=== PATIENT | male | born 1985 | race American Indian/Alaskan Native ===

== ENCOUNTER 2018-11-06 14:57 | Emergency (ER) | payer SELFPAY ==
--- NOTE | 2018-11-06 15:17 | Emergency Department Report ---
Blank Doc - Documentation Documentation: This is a 33-year-old male that presents with left foot pain s/p injury at work. This initial assessment/diagnostic orders/clinical plan/treatment(s) is/are subject to change based on patient's health status, clinical progression and re- assessment by fellow clinical providers in the ED. Further treatment and workup at subsequent clinical providers discretion. Patient/guardians urged not to elope from the ED as their condition may be serious if not clinically assessed and managed. Initial orders include: 1- Patient sent to [facility] for further evaluation and treatment 2- xray
[2018-11-06 15:19] VITALS: BP 124/89
--- NOTE | 2018-11-06 16:25 | XRay Report ---
PROCEDURE: XR FOOT 3+V LT TECHNIQUE: Left foot, 4 views HISTORY: left foot pain COMPARISON: None FINDINGS: There is no fracture seen. There is no dislocation seen. There is no focal bony lesion identified. IMPRESSION: There is no acute abnormality identified. This document is electronically signed by Ann Marie Frederick MD., Nov 06 2018 04:23:25 PM ET
[2018-11-06] MEDS ORDERED: IBUPROFEN PO ONE (19:43)
--- NOTE | 2018-11-06 19:45 | Emergency Department Report ---
ED Lower Extremity HPI - General Chief Complaint: Extremity Injury, Lower Stated Complaint: LFT FOOT INJURY Time Seen by Provider: 11/06/18 15:16 Source: patient Mode of arrival: Ambulatory Limitations: No Limitations - History of Present Illness Initial Comments: 33-year-old -[place] male with no past medical history comes in for left foot injury while at work. Patient reports that about 1 AM this morning he got his left foot smashed between 2 pallets. Patient is taking nothing for pain. Patient reports is able to ambulate on the heel but not the ball or toes of the foot. The patient currently takes no medications and has no known drug allergies. MD Complaint: foot injury -: This morning Time: 01:00 Type of Injury: other (smashed between 2 pallets) Place: work Severity: moderate Severity scale (0 -10): 4 Improves With: rest Worsens With: weight bearing Other Symptoms: loss of consciousness Associated Symptoms: swelling, able to partially bear weight Treatments Prior to Arrival: other (none) - Related Data Previous Rx's Medication Instructions Recorded Last Taken Type Ibuprofen [Motrin 800 MG tab] 800 mg PO Q8HR PRN #30 tablet 01/17/16 Unknown Rx Mupirocin [Bactroban 2% OINT] 1 applic TP TID #1 tube 01/17/16 Unknown Rx Ibuprofen [Motrin 800 MG tab] 800 mg PO Q8HR PRN #30 tablet 11/06/18 Unknown Rx Allergies Allergy/AdvReac Type Severity Reaction Status Date / Time No Known Allergies Allergy Verified 01/17/16 22:21 ED Review of Systems ROS: Stated complaint: LFT FOOT INJURY Other details as noted in HPI Comment: All other systems reviewed and negative Musculoskeletal: joint swelling, arthralgia ED Past Medical Hx - Surgical History Additional Surgical History: Butt surgery at 8 - Social History Smoking Status: Current Every Day Smoker Substance Use Type: None - Medications Home Medications: Home Medications Medication Instructions Recorded Confirmed Last Taken Type Ibuprofen [Motrin 800 MG tab] 800 mg PO Q8HR PRN #30 tablet 01/17/16 Unknown Rx Mupirocin [Bactroban 2% OINT] 1 applic TP TID #1 tube 01/17/16 Unknown Rx Ibuprofen [Motrin 800 MG tab] 800 mg PO Q8HR PRN #30 tablet 11/06/18 Unknown Rx ED Physical Exam - General Limitations: No Limitations General appearance: alert, in no apparent distress - Head Head exam: Present: atraumatic, normocephalic - Eye Eye exam: Present: normal appearance, EOMI - ENT ENT exam: Present: mucous membranes moist - Neck Neck exam: Present: normal inspection, full ROM - Expanded Lower Extremity Exam Left Hip exam: Present: normal inspection Upper Leg exam: Present: normal inspection Knee exam: Present: normal inspection Lower Leg exam: Present: normal inspection Ankle exam: Present: normal inspection Foot/Toe exam: Present: full ROM, tenderness (first metatarsal), swelling (first tarsal) Neuro vascular tendon exam: Present: no vascular compromise, sensory deficit - Neurological Exam Neurological exam: Present: alert, oriented X3 - Psychiatric Psychiatric exam: Present: normal affect, normal mood - Skin Skin exam: Present: warm, dry, intact, normal color. Absent: rash ED Course Vital Signs 11/06/18 15:16 Temperature 98.5 F Pulse Rate 78 Respiratory 18 Rate Blood Pressure 124/89 O2 Sat by Pulse 99 Oximetry ED Lower Extremity MDM - Radiology Data Radiology results: report reviewed Patient: BREANNA ALMONTE MR#: [id number] : 1985 Acct:[id number] Age/Sex: 33 / M ADM Date: 11/06/18 Loc: ED Attending Dr: Ordering Physician: RYAN ALVARADO NP Date of Service: 11/06/18 Procedure(s): XR foot 3+V LT Accession Number(s): [id number] cc: RYAN ALVARADO NP Fluoro Time In Minutes: PROCEDURE: XR FOOT 3+V LT TECHNIQUE: Left foot, 4 views HISTORY: left foot pain COMPARISON: None FINDINGS: There is no fracture seen. There is no dislocation seen. There is no focal bony lesion identified. IMPRESSION: There is no acute abnormality identified. This document is electronically signed by Ann Marie Frederick MD., Nov 06 2018 04:2 3:25 PM ET Transcribed By: CAROLYN Dictated By: ANN MARIE FREDERICK MD Electronically Authenticated By: ANN MARIE FREDERICK MD Signed Date/Time: 11/06/18 1625 DD/ 16 TD/TT: 11/06/181616 - Medical Decision Making 33-year-old now comes in for left foot injury. X-ray of the foot was negative. Patient be given ibuprofen 800 mg by mouth now and prescription for ibuprofen. Patient is to follow-up with his primary care provider or orthopedic provider. Critical care attestation.: If time is entered above; I have spent that time in minutes in the direct care of this critically ill patient, excluding procedure time. ED Disposition Clinical Impression: Injury of left foot Qualifiers: Encounter type: initial encounter Qualified Code(s): S99.922A - Unspecified injury of left foot, initial encounter Disposition: TO HOME OR SELFCARE Is pt being admited?: No Does the pt Need Aspirin: No Condition: Stable Instructions: Arthralgia (ED) Additional Instructions: Take pain medication as needed. Increase her water intake but taking pain medication. The symptoms persist or gets worse please follow-up with the primary care provider or orthopedic provider. Prescriptions: Ibuprofen [Motrin 800 MG tab] 800 mg PO Q8HR PRN #30 tablet PRN Reason: Pain , Severe (7-10) Referrals: [facility] [Other] - 3-5 Days CARLA DUMONT MD [Staff Physician] - 3-5 Days Forms: Work/School Release Form(ED)
== END 2018-11-06 20:00 | disposition home or self-care (01) ==
LOC: ED 14:57
DX: S99.922A Unspecified injury of left foot, initial encounter (principal); F17.200 Nicotine dependence, unspecified, uncomplicated; Z79.899 Other long term (current) drug therapy; W23.0XXA Caught, crushed, jammed, or pinched between moving objects, initial encounter; Y93.89 Activity, other specified; Y92.89 Other specified places as the place of occurrence of the external cause; Y99.8 Other external cause status
CPT/HCPCS: 99283